=== PATIENT | male | born 1975 | race Caucasian/White ===

== ENCOUNTER 2018-09-30 10:50 | Day surgery (SDC) | payer BC ==
--- NOTE | 2018-09-30 12:28 | HP ---
History & Physical Update - History History: No Change - Physical Physical: No Change - Assessment Assessment: No Change - Plan Plan: No Change (see my office notes)
[2018-09-30] MEDS ORDERED: LIDOCAINE HCL 1%, 10 MG/ML (20ML VIAL) ONE (12:34)
[2018-09-30] MEDS ORDERED: BUPIVACAINE HCL/PF 0.5% (5MG/ML) 10 ML VIAL ONE (12:35)
[2018-09-30] MEDS ORDERED: MIDAZOLAM HCL 2 MG/2 ML SINGLE DOSE VIAL ONE (12:44)
[2018-09-30] MEDS ORDERED: GLYCOPYRROLATE 0.2 MG/1 ML VIAL ONE (12:44)
[2018-09-30] MEDS ORDERED: LIDOCAINE HCL 1%, 10 MG/ML (50 mL VIAL) INF ONE ×3 (13:21)
[2018-09-30] MEDS ORDERED: BUPIVACAINE HCL/PF 0.5% (5MG/ML) 10 ML VIAL IJ ONE ×3 (13:21)
--- NOTE | 2018-09-30 14:38 | OP ---
Operative Note - Note: Operative Date: 09/30/18 Pre-Operative Diagnosis: lipoma right axilla Operation: excision lipoma right axilla Findings: 6 cm. lipoma right posterior axillary line. Post-Operative Diagnosis: Same as Pre-op Surgeon: Christian Hermosillo Anesthesiologist/SALES ATTENDANT: Leoncio Owen Anesthesia: MAC Specimens Removed: lipoma Estimated Blood Loss (mls): 5
--- NOTE | 2018-10-03 13:27 | OP ---
DATE OF OPERATION: 09/30/2018 PREOPERATIVE DIAGNOSIS: Lipoma of the right axilla. POSTOPERATIVE DIAGNOSIS: Lipoma of the right axilla. PROCEDURE: Excision of lipoma. SURGEON: Christian Hermosillo MD ANESTHESIA: Local with IV sedation. OPERATIVE FINDINGS: A 6-cm in greatest dimension lipoma of the right axilla at the right posterior axillary line. The rest of the findings were unremarkable. PROCEDURE: The patient was placed on the operating room table in the left lateral decubitus position and the area over the lipoma, which had been previously marked, was prepped with ChloraPrep and draped in sterile fashion. A timeout was taken , and then the area infiltrated with 1% xylocaine and 0.5% Marcaine in equal concentration. Incision was made with the scalpel and taken down through skin and subcutaneous tissue into the superficial fascia, and the lipoma identified. Using blunt dissection, its pedicle was identified, clamped, and the lipoma excised and passed off the operative field for pathological examination. The pedicle was ligated with 3-0 Vicryl suture. Hemostasis was secured with electrocautery, and then the deep fascial defect where the lipoma originated from was closed with several interrupted 3-0 Vicryl sutures. The deep dermis was reapproximated with interrupted 3-0 Vicryl and the skin edges with 4-0 Monocryl in a subcuticular continuous fashion. Steri-Strips and dry sterile dressings were placed. Procedure terminated at this point, and the patient transferred to the postanesthesia care unit in stable condition awake and alert. ESTIMATED BLOOD LOSS: 5 mL. REPLACEMENTS: Crystalloid. DRAINS: None. SPECIMENS: Lipoma to Pathology. I, Christian Hermosillo MD, was physically present in the operating room from the time the patient was placed on the operating room table until he was transferred to the postanesthesia care unit in my accompaniment. Christian Hermosillo MD /[id number] MTDD
--- NOTE | 2018-10-04 16:08 | PATH ---
Surgical Pathology Report Patient Name: PA FUCHS [facility]. Rec. #: [id number] /Age/Gender: 1975 (Age: 43) / F Account: [id number] Location: Taken: 09/30/2018 Received: 10/03/2018 Reported: 10/04/2018 Physicians: Christian Hermosillo MD Specimen(s) Received SOFT TISSUE MASS RIGHT AXILLA Clinical History Soft tissue mass right axilla Final Diagnosis SOFT TISSUE, RIGHT AXILLA, EXCISION: LIPOMA. Electronically Signed Bolivar Red M.D. Gross Description Received in formalin labeled "soft tissue mass right axilla," is a 4.8 x 3.2 x 2.3 cm portion of yellow, lobulated adipose tissue. Sectioning reveals homogeneous yellow, smooth fat. No areas of hemorrhage or necrosis are identified. Microbiology Technologist sections are submitted in one cassette. /10/03/201810/03/2018
== END 2018-09-30 15:20 | disposition home or self-care (01) ==
LOC: JASU-SURG 10:50
PROVIDERS: ATTEND Surgery
PROC: 0JB60ZZ Excision of Chest Subcutaneous Tissue and Fascia, Open Approach (ICD-10-PCS; principal; 2018-09-30 12:00)
DX: D17.1 Benign lipomatous neoplasm of skin and subcutaneous tissue of trunk (principal)
CPT/HCPCS: 88304-TC

== ENCOUNTER 2018-10-26 10:38 | Day surgery (SDC) | payer BC ==
[2018-10-14 14:14] VITALS: BMI 26.9
[2018-10-26] MEDS ORDERED: LIDOCAINE HCL/PF 2% SDV 5ML VIAL ONE (10:48)
[2018-10-26] MEDS ORDERED: PROPOFOL 20 ML ONE ×2 (10:48)
[2018-10-26 11:14] VITALS: TEMP 98.3
[2018-10-26 12:24] VITALS: BP 116/73; PULSE 73
== END 2018-10-26 12:30 | disposition home or self-care (01) ==
LOC: FASU-ENDO 10:38
PROVIDERS: ATTEND Internal Medicine Gastroenterology
PROC: 0DJD8ZZ Inspection of Lower Intestinal Tract, Via Natural or Artificial Opening Endoscopic (ICD-10-PCS; principal; 2018-10-26 10:00)
DX: R10.9 Unspecified abdominal pain (principal); K64.0 First degree hemorrhoids